=== PATIENT | female | born 1950 | race African-American/Black ===

== ENCOUNTER 2017-07-03 14:37 | Observation (INO) | payer MEDICARE ==
[~2017-07-03] VITALS: Ht 162.6 cm; Wt 51.7 kg
[~2017-07-03 14:37] MED LIST: AMBIEN10 MG PO; ASPIRIN EC81 MG PO; CARVEDILOL12.5 MG PO; HYDRALAZINE HCL25 MG PO; PROAIR HFA INH8.5 GM; VALIUM10 MG PO
[2017-07-03 16:00] LABS: BASOPHILS % 0.7 % (0.0-1.0); EOSINOPHILS # (AUTO) 0.1 (0.0-0.4); EOSINOPHILS % 1.6 % (0.0-6.0); HEMATOCRIT 34.9 % (34.2-44.1); HEMOGLOBIN 11.8 g/dL (12.0-16.0); LYMPHOCYTES # (AUTO) 1.4 (1.0-3.2); LYMPHOCYTES % 32.9 % (18.0-39.1); MEAN CORPUSCULAR HGB CONC 33.8 g/dL (31-35); MEAN CORPUSCULAR VOLUME 100.6 fL (81-99); MONOCYTES # (AUTO) 0.4 (0.2-0.8); MONOCYTES % 8.9 % (4.4-11.3); NEUTROPHILS # (AUTO) 2.4 (2.1-6.9); NEUTROPHILS % 55.4 % (38.7-80.0); PLATELET COUNT 193 x10e3/uL (140-360); RED BLOOD COUNT 3.47 x10e6/uL (3.6-5.1); RED CELL DISTRIBUTION WIDTH 12.1 % (11.7-14.4)
--- NOTE | 2017-07-03 16:11 | Diagnostic Imaging Report ---
PROCEDURE: CHEST SINGLE (PORTABLE) 1557 hrs. COMPARISON: Chest x-ray 10/14/14. INDICATIONS: LOW BLOOD PRESSURE AND HEADACHE FINDINGS: LUNGS: The 2 subtle noncalcified densities measure about 10 mm each in the lateral right upper lobe could be due to scarring, nodules, or developing infiltrate. The pulmonary vascular markings are normal. PLEURA: There is blunting of left lateral costophrenic angle, similar to previous exam. The right lateral costophrenic angle is sharp. No pneumothorax. HEART \T\ MEDIASTINUM: The heart is within normal size-limits. AICD lead terminates in the right ventricle. BONES \T\ SOFT TISSUES: The bones are intact and normal in morphology. No focal osseous lesions. CONCLUSION: 1. Two subtle densities in the lateral right upper lobe of uncertain etiology. Please correlate for signs/symptoms of infection. Recommend follow-up PA and lateral chest x-ray in 6 weeks to assess interval change/resolution. 2. Stable blunting of the left lateral costophrenic angle could be due to chronic effusion or pleural thickening. Dictated by: Milton Jaramillo M.D. on 07/03/2017 at 16:19 Electronically approved by: Milton Jaramillo M.D. on 07/03/2017 at 16:19
--- NOTE | 2017-07-03 16:21 | Diagnostic Imaging Report ---
History:Low blood pressure Comparison studies: CT head 10/14/2014 Technique: Axial images were obtained from the skull base to the vertex. Coronal and sagittal reconstructions obtained from the axial data. Findings: Scalp/skull: No abnormalities. No fractures, blastic or lytic lesions. Extra-axial spaces: No masses. No fluid collections. Brain sulci: Appropriate for age. Ventricles: Normal in size and configuration. No hydrocephalus. Parenchyma: No abnormal densities. No masses, hemorrhage, acute or chronic cortical vascular insults. Sellar/suprasellar region: No abnormalities Craniocervical junction: Patent foramen magnum. No Chiari one malformation. IMPRESSION: No abnormalities . Signed by: DR Sushil Caballero M.D. on 07/03/2017 4:18 PM
[2017-07-03 16:35] LABS: ALBUMIN 3.6 g/dL (3.5-5.0); ANION GAP 12.9 mmol/L (8-16); CALCIUM 9.3 mg/dL (8.4-10.2); CREATININE, SERUM 2.68 mg/dL (0.57-1.11); POTASSIUM 4.9 mmol/L (3.5-5.1)
[2017-07-03 16:41] LABS: CREATINE KINASE MB 0.7 ng/mL (0.00-5.00); TROPONIN I 0.01 ng/mL (0-0.300)
[2017-07-03] MEDS ORDERED: SODIUM CHLORIDE 0.9% INJ 250 ML BAG IV ONE (16:45)
[2017-07-03] MEDS ORDERED: SPIRONOLACTONE25 MG PO (17:34)
[2017-07-03] MEDS ORDERED: FUROSEMIDE40 MG PO (17:34)
[2017-07-03 18:15] LABS: BILIRUBIN,URINE NEGATIVE (NEGATIVE); KETONES,URINE NEGATIVE (NEGATIVE); LEUKOCYTE ESTERASE ,URINE NEGATIVE (NEGATIVE); NITRITE,URINE NEGATIVE (NEGATIVE); PROTEIN,URINE DIPSTICK NEGATIVE (NEGATIVE); URINE UROBILINOGEN 0.2 mg/dL (0.2 - 1)
[2017-07-03] MEDS ORDERED: ONDANSETRON HCL INJ 2 MG/ML VIAL IV PRN (18:15)
[2017-07-03 18:23] LABS: CLARITY,URINE CLEAR (CLEAR); COLOR,URINE YELLOW (YELLOW)
[2017-07-03 18:24] LABS: MUCUS,URINE FEW (RARE); RBC,URINE 0-5 /HPF (0-5); WBC,URINE (MAN) 0-5 /HPF (0-5)
[2017-07-03] MEDS ORDERED: CEFTRIAXONE SOD 1 GRAM/0.9% SOD CHL 50ML BAG IV STA (18:35)
[2017-07-03] MEDS ORDERED: AZITHROMYCIN 250 MG TAB PO ONE (18:45)
[2017-07-03] MEDS: SODIUM CHLORIDE 0.9% 1000ML 1,000 ML IV SCH (18:56)
[2017-07-03] MEDS ORDERED: CEFTRIAXONE SOD 1 GM VIAL IV ONE (19:30)
[2017-07-04] VITALS (9 sets, daily range): BP systolic 99–121; BP diastolic 48–69
[2017-07-04] MEDS: SODIUM CHLORIDE 0.9% 1000ML 1,000 ML IV SCH ×3 (05:24→21:14)
[2017-07-04] MEDS ORDERED: DIAZEPAM PO PRN (12:30)
[2017-07-04] MEDS ORDERED: DIAZEPAM 5 MG TAB PO PRN (12:45)
--- NOTE | 2017-07-04 13:07 | History and Physical ---
HISTORY OF PRESENT ILLNESS: This 67-year-old female, with past medical history positive for COPD, sarcoidosis, congestive heart failure, came to the clinic originally feeling extremely weak and tired. The patient was found to be hypotensive. She was sent to the emergency room. She was started on IV fluids. Chest x-ray shows some questionable infiltrate and [id number] renal failure. REVIEW OF SYSTEMS CARDIOVASCULAR: She denies any chest pain or palpitations. RESPIRATORY: No shortness of breath. No cough. GASTROINTESTINAL: No nausea, vomiting or diarrhea. GENITOURINARY: No frequency or dysuria. ALLERGIES: SHE IS NOT ALLERGIC TO ANY MEDICATION. PHYSICAL EXAMINATION: Vital signs: Blood pressure 110/56 temperature 96.7, heart rate 81 per minute, respiratory rate 18 per minute, oxygen saturation 100%. LABORATORY DATA: On the blood work, we have a BMP with sodium 142, potassium 4.9, chloride 106, CO2 28, BUN 45, creatinine 2.68, glucose 84. On the CBC, white blood count 4.29, hemoglobin 11.8 hematocrit 34.9, platelet count 193,000. AST 23, ALT 12, total bilirubin 0.3, alkaline phosphatase 84. FINAL IMPRESSION 1. [id number] renal failure, stage 3. 2. Hypotension. 3. Sarcoidosis. 4. Chronic obstructive pulmonary disease. 5. Lung infiltrates 6. Cardiomyopathy. PLAN OF TREATMENT: We are gong to continue IV fluids at 80 mL an hour. We are going to resume the Valium 10 mg q.8 h. as needed and Ambien 5 mg at night p.r.n. for sleep. We are going to hold the Lasix, the Aldactone and the Coreg because of the acute dehydration and also the hypotension. We are going to order a renal ultrasound. We are going to consult Dr. Amilcar Horn for nephrology. We are going to do an echocardiogram also to evaluate the ejection fraction. Job#: [id number] TONIA
[2017-07-04 14:35] LABS: CREATININE,URINE RANDOM 61.47 mg/dL (47-110)
--- NOTE | 2017-07-04 20:53 | Consultation ---
DATE OF CONSULTATION: July 04, 2017 NEPHROLOGY CONSULTATION ATTENDING PHYSICIAN: Dr. Abbott. REASON FOR CONSULTATION: PHAN. REASON FOR ADMISSION: Weakness and dizziness. HISTORY OF PRESENTING ILLNESS: Ms. Gaines is a 67-year-old lady with a past medical history for COPD, sarcoidosis, congestive heart failure, hypertension and CKD stage 2 to 3, who was admitted from her clinic when she went to see Dr. Abbott and she was feeling extremely dizzy and weak and tired, and she was found to be hypotensive and she was sent to the emergency room. She was started on IV fluids. At home she is on Lasix, Aldactone and Coreg as well, which were all held here. Her creatinine was noted to be elevated to 2.6. In 2014, it was noted her creatinine was around 1.7. She states that she had seen a primary school teacher about a year and a half ago but then never followed up and since then has been following only with Dr. Abbott, who has been monitoring her labs. At this time, patient states she has been urinating fine, no issues with that, and denies any burning sensation, denies any nausea, vomiting or decreased p.o. intake at this time. She has been feeling better since she has been admitted to the hospital. We have been consulted to assist with her management of her acute kidney injury of 2.68. PAST MEDICAL HISTORY 1. COPD. 2. Sarcoidosis. 3. Congestive heart failure. 4. Hypertension. 5. CKD stage 2 to 3. PAST SURGICAL HISTORY 1. She has bone surgery. 2. Hysterectomy. 3. Lung biopsy. FAMILY HISTORY: Not pertinent to chief complaint. SOCIAL HISTORY: No alcohol, tobacco or drug use. ALLERGIES: NO KNOWN ALLERGIES. MEDICATIONS: Reviewed in electronic medical record. REVIEW OF SYSTEMS: A 12-point review of systems was performed. Pertinent positives as per HPI. PHYSICAL EXAMINATION VITAL SIGNS: Temperature 98.7 degrees Fahrenheit, pulse rate 70 per minute, respiratory rate 18 per minute, blood pressure 112/55, on admission was in 100s/60s, pulse ox satting 98% on room air. GENERAL: Resting comfortably in bed. HEENT: Normocephalic, atraumatic. JVD is about 5 cm from the sternal angle. RESPIRATORY: Clear breath sounds. CARDIOVASCULAR: Regular rate and rhythm. MUSCULOSKELETAL: No lower extremity edema. GENITOURINARY: No Ruvalcaba. NEUROLOGICAL: No asterixis appreciated. LABORATORY DATA: WBC count 4.29, hemoglobin 11.8, platelet count 193. Chemistries with sodium 142, potassium 4.9, chloride 106, bicarb 28, BUN 45, creatinine 2.68, calcium 9.3. AST 20, ALT 12. CK 54, troponin 0.01. Albumin 3.6. Urinalysis with urine sodium at 70, urine creatinine 61, pH at 6, specific gravity 1.015, and otherwise within normal, negative ketones and protein. Blood cultures no growth after 24 hours and urine cultures in progress. IMAGING: Brain CT within normal. Chest x-ray with 2 subtle densities in the right upper lobe of uncertain etiology and stable of left lateral costovertebral angle due to chronic effusion and pleural thickening. Echocardiogram ordered and pending. IMPRESSION AND PLAN 1. Acute kidney injury on chronic kidney disease stage 3. Patient appears euvolemic at this time. Will follow up echo results and agree with gentle fluids at this time and holding Coreg, Lasix and Aldactone. Based on echo results, will decide on resuming diuretics. At this time, she appears euvolemic and is not short of breath; so, will continue with fluids and monitor. Renal ultrasound has been ordered and is pending. 2. Weakness, dizziness. Likely secondary to volume depletion. Continue with fluids. Will monitor. 3. Sarcoidosis. Not on prednisone. Will monitor. Usually sarcoidosis leads to acute interstitial nephritis, but as patient has no WBCs in her urine, hence unlikely that that is the cause. However, will monitor. 4. History of congestive heart failure. Will follow up echo. 5. History of hypertension. Currently blood pressure low. Hold Coreg. Finally, thank you very much, Dr. Abbott, for this consult. I will be very happy to follow this patient with you. Job#: [id number] EV
[2017-07-04] MEDS ORDERED: ZOLPIDEM TARTRATE 10 MG TAB PO SCH (21:00)
[2017-07-05] VITALS (7 sets, daily range): BP systolic 95–149; BP diastolic 55–85
[2017-07-05] MEDS ORDERED: ASPIRIN 81 MG ENTERIC COATED PO SCH (09:00)
[2017-07-05 09:07] LABS: ANION GAP 9.8 mmol/L (8-16); CALCIUM 8.7 mg/dL (8.4-10.2); CREATININE, SERUM 1.84 mg/dL (0.57-1.11); POTASSIUM 4.8 mmol/L (3.5-5.1)
[2017-07-05] MEDS: SODIUM CHLORIDE 0.9% 1000ML 1,000 ML IV SCH (09:49)
[2017-07-05] MEDS ORDERED: LORATADINE 10 MG TAB PO SCH (11:00)
== END 2017-07-05 15:34 | disposition home or self-care (01) ==
LOC: ER 14:37 → ERHOLD 18:17 → IMCU 22:28
PROVIDERS: ADMIT Internal Medicine; ATTEND Internal Medicine
DX: N17.9 Acute kidney failure, unspecified (principal); I95.9 Hypotension, unspecified; E86.0 Dehydration; I13.0 Hypertensive heart and chronic kidney disease with heart failure and stage 1 through stage 4 chronic kidney disease, or unspecified chronic kidney disease; I50.9 Heart failure, unspecified; N18.3 Chronic kidney disease, stage 3 (moderate); I42.9 Cardiomyopathy, unspecified; J44.9 Chronic obstructive pulmonary disease, unspecified; D86.9 Sarcoidosis, unspecified; R91.8 Other nonspecific abnormal finding of lung field; J30.9 Allergic rhinitis, unspecified; F17.210 Nicotine dependence, cigarettes, uncomplicated; Z79.82 Long term (current) use of aspirin
CPT/HCPCS: 36415 ×2; 70450; 71010; 80048; 80053; 81001; 82550; 82553; 82570; 84300; 84484; 85025; 87040; 87086; 93005; 96361; 96365; 99284; G0378 ×3; J0696; J7030 ×3; J7050